=== PATIENT | female | born 1940 | race Caucasian/White ===

== ENCOUNTER 2021-07-20 15:50 | Outpatient (REF) | payer MEDICARE, MEDICAID, SELFPAY ==
--- NOTE | 2021-07-20 14:45 | SKI_PTH ---
PATIENT: Alexandria Huff LOC: [facility]#:[id number] AGE/SX: 81/F ROOM: RE07/20/[address]: Nataly Heart : 1940 BED: DIS: 07/20/2021 SPEC #: [id number] RECD: 07/23/21 12:48 STATUS: JEFF REQ #: [id number] YOLI: 07/20/21 14:[address]: Nataly Heart DEPT: Surgical Specimen RECD BY: Sharon Suarez ENTERED: 07/23/21 12:48 SP TYPE: TAVARES FUNES DR: Haven Mendoza Tissues: 1 - SKIN BIOPSY(SHAVE/PUNCH) Procedures: SKIN LEVEL 4 Comments: [id number]
== END 2021-07-20 15:51 | disposition home or self-care (01) ==
LOC: NCHCN 15:50
PROVIDERS: Visit Provider Family Medicine
DX: C44.619 Basal cell carcinoma of skin of left upper limb, including shoulder (principal)
CPT/HCPCS: 88305

== ENCOUNTER 2021-12-06 14:40 | Outpatient (REF) | payer MEDICARE, MEDICAID, SELFPAY ==
--- NOTE | 2021-12-06 13:50 | SKI_PTH ---
PATIENT: Alexandria Huff LOC: [facility]#:[id number] AGE/SX: 81/F ROOM: RE12/06/[address]: Nataly Heart : 1940 BED: DIS: 12/06/2021 SPEC #: [id number] RECD: 12/07/21 11:19 STATUS: JEFF YODER #: [id number] YOLI: 12/06/21 13:[address]: Nataly Heart DEPT: Surgical Specimen RECD BY: Sharon Suarez Tissues: 1 - SKIN BIOPSY(SHAVE/PUNCH) Procedures: SKIN LEVEL 4 Comments: [id number]
== END 2021-12-06 14:41 | disposition home or self-care (01) ==
LOC: NCHCN 14:40
PROVIDERS: PCP Family Medicine; Visit Provider Family Medicine
DX: L90.5 Scar conditions and fibrosis of skin (principal)
CPT/HCPCS: 88305

== ENCOUNTER 2023-12-11 11:51 | Outpatient (REF) | payer MEDICARE, MEDICAID, SELFPAY ==
[2023-12-11 14:29] LABS: HCT 42.9 % (36.0-46.0); HGB 14.6 g/dL (11.2-15.7); MCH 31.6 pg (27.0-33.0); MCV 93 fL (80-95); MPV 9.9 fL (8.0-11.0); Platelet Count 379 10^3/uL (130-400); RBC 4.62 10^6/uL (3.93-5.22); RDW 12.5 % (11.7-14.6); RDW-SD 42.9 fL; WBC 7.55 10^3/uL (4.4-10.8)
[2023-12-11 14:42] LABS: ALT 32 U/L (14-59); AST 21 U/L (15-37); Albumin 3.7 g/dL (3.4-5.0); Alkaline Phosphatase 73 U/L (46-116); Anion Gap 9.4 mmol/L (3-11); BUN 12 mg/dL (7-18); Bilirubin, Total 0.6 mg/dL (0.2-1.0); CO2 28.6 mmol/L (21.0-32.0); CREATININE 0.7 mg/dL (0.55-1.02); Calcium 9.2 mg/dL (8.5-10.1); Chloride 103 mmol/L (98-107); Glucose 112 mg/dL (74-106); Potassium 4.5 mmol/L (3.5-5.1); Sodium 141 mmol/L (136-145); Total Protein 7.2 g/dL (6.4-8.2)
== END 2023-12-11 11:52 | disposition home or self-care (01) ==
LOC: NCHCN 11:51
PROVIDERS: PCP Family Medicine; Referring Provider Family Medicine; Visit Provider Family Medicine
DX: R03.0 Elevated blood-pressure reading, without diagnosis of hypertension (principal)
CPT/HCPCS: 80053; 85027

== ENCOUNTER 2024-08-26 17:06 | Observation (INO) | payer MEDICARE, SELFPAY ==
[2024-08-26] VITALS (18 sets, daily range): BP systolic 118–208; BP diastolic 64–125; PULSE 71–96; RESP 9–20; TEMP 36–36.7; O2SAT 96–99; BMI 28.0
[2024-08-26] MEDS: Normal Saline Flush 10 ML SYR IV (15:56)
--- NOTE | 2024-08-26 15:57 | ANES.PREOP_ITS ---
General Info Date of Service Date Performed: 08/26/24 Height: 5 ft 4 in Weight: 74 kg Body Mass Index (BMI): 28.0 Surgical Procedure: Operation Date: 08/26/24 15:40 Proposed Procedure Side Surgeon p Dilation & Curettage, cervical bx, EUA Zonia Argeullo DO Actual Procedure Side Surgeon p Dilation & Curettage, cervical bx, EUA Not Applicable Zonia Arguello DO Meds Allergies and Home Medications Allergies Allergy/AdvReac Type Severity Reaction Status Date / Time No Known Allergies Allergy Verified 08/26/24 15:50 Home Medication ?Medication ?Instructions ?Recorded ascorbic acid (vitamin C) 500 mg 500 mg PO DAILY 02/17/19 tablet omega-3 fatty acids 1,000 mg 1,000 mg PO DAILY 02/17/19 capsule (Fish Oil Concentrate) vitamin B complex (B 1 tab PO DAILY 02/17/19 Complex-Vitamin B12 tablet) vitamin E (dl, acetate) 180 mg 400 unit PO DAILY 02/17/19 (400 unit) capsule cholecalciferol (vitamin D3) 25 1,000 unit PO DAILY 02/25/19 mcg (1,000 unit) capsule Current Visit Medications: Current Medications Generic Name Dose Route Start Last Admin Trade Name Freq PRN Reason Stop Dose Admin IV Miscellaneous Supplies 1 each 08/26/24 06:00 Iv Access IV 08/26/24 23:59 DIRECTED MARTA Sodium Chloride 0 ml 08/26/24 06:00 Normal Saline Flush 10 Ml Syr IV 08/26/24 23:59 PRN PRN Sodium Chloride 0 ml 08/26/24 06:00 Normal Saline 10 Ml Vial IJ 08/26/24 23:59 DIRECTED PRN Sterile Water 0 ml 08/26/24 06:00 Water,Injection,Sterile 10 Ml Vial IJ 08/26/24 23:59 DIRECTED PRN PFSH Active Problems Active Problems: Problem Status Onset Code Vaginal bleeding Acute N93.9 Pessary maintenance Acute Z46.89 Sensorineural hearing loss, bilateral Chronic 08/06/16 H90.3 Medical History Medical History Heart murmur, systolic Diverticulosis of colon Elevated blood pressure reading in office without diagnosis of hypertension Tubular adenoma of colon PMB (postmenopausal bleeding) Postmenopausal disorder Menopausal state Tobacco Smoking/Tobacco Use Status: Never Second hand exposure: No Alcohol Alcohol Intake: never Substance Use Substance use: Never Prental History History 2 3 Para 3 Hx # Term Pregnancies Multiple births Hx # Pregnancies Ectopic pregnancies AB induced Hx Number of Living Children AB spontaneous Vital Signs and Lab Results Vital Signs Most Recent Vital Signs in EMR: Most Recent Vital Signs Temp Pulse Resp BP Pulse Ox 36.5 C 95 H 19 208/97 H 97 08/26/24 15:34 08/26/24 15:34 08/26/24 15:34 08/26/24 15:34 08/26/24 15:34 Lab Results 08/26/24 15:48 Blood Type / Crossmatch: 2 Antibody Screen Pending 08/26/24 Complete Blood Count: 2 No Data to Display Complete Metabolic Panel: 2 No Data to Display Liver Function Panel: 2 No Data to Display Coagulation Panel: 2 No Data to Display Cardiac Panel: 2 No Data to Display Arterial Blood Gas: 2 No Data to Display Venous Blood Gas: 2 No Data to Display Pancreas Panel: 2 No Data to Display Thyroid Panel: 2 No Data to Display Infectious Disease: 2 No Data to Display Blood Cultures: 2 No Data to Display Toxicology Panel: 2 No Data to Display Anesthesia Assessment and Plan Anesthesia History Personal History: No History of General Anesthesia Family History: No Family History of Anesthesia Complications Exercise Tolerance Exercise Tolerance: Metabolic Equivalents>4 Pertinent Negatives Pertinent Negatives: No Symptoms of GERD (Rare reflux) Cardiac & Pulmonary Exam Cardiac Exam: Normal S1/S2 Heart Sounds (Unable to appreciate murmur) Pulmonary Exam: Clear Bilateral Breath Sounds Implantable Cardiac Device Does patient have a Pacemaker or an ICD?: No Airway Exam Known Difficult Airway: No Mallampati Class: 2 Mouth Opening: Normal (> 3cm) Thyromental Distance: Greater than 3 cm Neck Range of Motion: Full ROM Neck Circumference: Normal Teeth Condition: Removable Dentures/Plates Upper and Removable Dentures/Plates Lower ASA Classification ASA Score: ASA 2 Emergency Case?: Yes NPO Status NPO Status: Full Stomach (Chicken stew at 1230 today) Anesthesia Plan Resuscitation Status: Full Code Anesthesia Technique: General Anesthesia Airway Planned: Endotracheal Tube Monitors Used: Standard Monitors
[2024-08-26 16:00] LABS: Abs Immature Grans 0.03 10^3/uL (0.0-0.06); Absolute Basophil Count 0.05 10^3/uL (0.0-0.2); Absolute Eosinophil Count 0.05 10^3/uL (0.0-0.7); Absolute Lymphocyte Count 1.36 10^3/uL (1.2-3.4); Absolute Neutrophil Count 9.03 10^3/uL (1.2-6.7); Basophils % 0.4 %; Eosinophils % 0.4 %; HCT 41.7 % (36.0-46.0); Immature Grans % 0.3 %; MCH 31.4 pg (27.0-33.0); MCHC 33.6 % (32.0-36.0); MCV 94 fL (80-95); MPV 9.4 fL (8.0-11.0); Monocytes % 7.1 %; Neutrophils % 79.8 %; Platelet Count 372 10^3/uL (130-400); RBC 4.46 10^6/uL (3.93-5.22); RDW 12.7 % (11.7-14.6); RDW-SD 43.8 fL; WBC 11.32 10^3/uL (4.4-10.8)
[2024-08-26] MEDS: Lactated Ringers 500 ML 30 ML IV (16:20)
--- NOTE | 2024-08-26 16:40 | CER_PTH ---
PATIENT: Alexandria Huff LOC: U#:[id number] AGE/SX: 84/F ROOM: 208 RE08/26/[address]: Zonia Arguello DO : 1940 BED: A DIS: 08/27/2024 SPEC #: [id number] RECD: 08/27/24 12:45 STATUS: SOUElisabet REQ #: [id number] YOLI: 08/26/24 16:[address]: Zonia Arguello DEPT: Surgical Specimen RECD BY: Sharon Suarez ENTERED: 08/27/24 12:46 SP TYPE: CER OTHR DR: Nataly Heart Tissues: 1 - CERVICAL BIOPSY Procedures: GROSS AND MICRO LEVEL 4 IMMUNOPEROXIDASE STAIN Comments: [id number] (PLEASE INGRAM)
--- NOTE | 2024-08-26 17:16 | W.PM.OP ---
Date of service: 08/26/24 Time of Service: 17:16 Operative Note Operative Note DATE OF PROCEDURE: 08/26/24 PRE-OP DIAGNOSIS: Vaginal bleeding POST-OP DIAGNOSIS: same Cervical lesion PROCEDURE: Exam under anesthesia, cervical biopsy, cauterization of cervix and endocervix SURGEON: Zonia Arguello ASSISTING SURGEON: Kierra Smith ANESTHESIA TYPE: General LMA/ETT Refer to Anesthesia Record ESTIMATED BLOOD LOSS: 200 PATHOLOGY: other (Cervical tissue) COMPLICATIONS: None Patient was transported to: PACU Patient's condition: stable Indications: Profuse vaginal bleeding Findings: Normal-appearing perineum. Normal-appearing vaginal mucosa. Bulbous cervix with open cervical os. Tissue protruding through the cervical os, friable, fragile. Uterus, midline, mobile, no parametrial involvement. Uterus enlarged, approximately 6 to 8 weeks size. Procedure Description: After patient was seen in the office today for removal of pessary for further evaluation of new onset of vaginal bleeding, there was noted to be brisk vaginal bleeding which appeared to be cervical in nature. In light of relatively poor visualization, and ongoing bleeding despite attempts at cauterization of the cervical area, decision was made that she should go to the operating suite for exam under anesthesia and further evaluation. The risk, benefits, and alternatives were explained to the patient in full informed consent was obtained. She was taken the operating suite with an IV running where she was placed in the dorsal supine position. Endotracheal intubation performed for the administration of general anesthesia without difficulty. She was then placed in the modified dorsolithotomy position [facility] stirrups and prepped and draped in the usual sterile fashion. A straight catheter was used to drain approximately 50 cc of clear yellow urine. Exam under anesthesia revealed a uterus that was midline, mobile, and enlarged to approximately 8 weeks size. There was no parametrial tissue bulk. The cervix is somewhat enlarged at approximately 4 cm and cervical os open approximately 1 cm. There was protuberant tissue which was friable and fragile. Tissue specimen of the endocervix sent for pathologic examination. Speculum was inserted into the vaginal vault and the vaginal mucosa systematically inspected. There was no evidence of trauma or ulceration, or excoriation of the vaginal mucosa. Visually the cervix did appear smooth and regular, though somewhat patulous. There was also tissue protruding through the cervical opening that was friable and fragile. This area was initially cauterized with electrocautery, followed by chemical cautery with Monsel solution and pressure for greater than 10 minutes. She received 1 dose of intravenous TXA. At the completion of pressure and her Monsel solution, there was no further bleeding. Patient was returned to the dorsal supine position and awoke from anesthesia without difficulty. She was taken to the postanesthesia care unit in stable condition. Complications: None apparent Fluids: Crystalloid per anesthesia Pathology: Endocervical tissue for examination Findings: No evidence of vaginal excoriation, laceration, or ulceration. Visually smooth regular cervix with protuberant tissue from the cervical os, actively bleeding, cauterized and hemostatic. Bulky, approximately 8-week sized uterus midline, and mobile without evidence of parametrial extension or bulkiness. No appreciable adnexal mass. EBL: 200 cc
--- NOTE | 2024-08-26 17:33 | PGE_ITS ---
Date of Service Date of service: 08/26/24 Time of Service: 17:34 Assessment and Plan Assessment and plan (1) PMB (postmenopausal bleeding): Assessment and plan: Patient had profuse vaginal bleeding after removal of her pessary today. The etiology and source appears to be cervix with friable fragile cervical tissue sent for pathologic examination. Area cauterized both with electrocautery and chemically to achieve hemostasis. Await pathology. Contact made with [facility] oncology at [facility], Dr. Felix, who would except patient's care tonight if she has further ongoing vaginal bleeding or decompensation. Otherwise she will be seen by [facility] oncology in the near future, or as outpatient. (2) Cervical mass: Status: Acute Assessment and plan: Tissue sent to pathology. (3) Postoperative state: Status: Acute Assessment and plan: Status post exam under anesthesia, cervical biopsy, control of cervical bleeding. TXA dose x 1. Will receive Aygestin, 10 mg p.o. twice daily to help diminish vaginal bleeding. Await pathology. Subjective Subjective Interval history since last seen: Patient is in the postanesthesia care unit after her surgical procedure. As of note, [facility] oncology at [facility] contacted via One call. Spoke with Dr. Felix who agreed that if patient has deterioration or ongoing bleeding, they would except her care tonight. Otherwise they would be happy to follow-up with her as an outpatient, or transfer tomorrow. Also spoke with Dr. Ezio Childress, hospitalist to make them aware that the patient will be admitted to the general medical floor. Objective Last Vital Signs Temp 97.7 F 08/26/24 17:25 Pulse 79 08/26/24 17:25 Resp 12 08/26/24 17:30 BP 125/64 08/26/24 17:25 Pulse Ox 98 08/26/24 17:30 Laboratory Results - last 24 hr 08/26/24 15:48 WBC 11.32 H RBC 4.46 Hgb 14.0 Hct 41.7 MCV 94 MCH 31.4 MCHC 33.6 RDW 12.7 Plt Count 372 MPV 9.4 Immature Gran % 0.3 Neutrophils % 79.8 Lymphocytes % 12.0 Monocytes % 7.1 Eosinophils % 0.4 Basophils % 0.4 Nucleated RBC % 0.0 Absolute Neutrophils 9.03 H Absolute Lymphocytes 1.36 Absolute Monocytes 0.80 Absolute Eosinophils 0.05 Absolute Basophils 0.05 ABO/Rh A Positive Antibody Screen NEGATIVE Time Spent with Patient Time Spent with Patient: 35-49 minutes Time was spent: preparing to see the patient(eg.review tests), obtaining and/or reviewing separately otained hiistory, ordering medications,tests, procedures, referring, communicating with other health urgent care nurse practitioner, indepentently interpreting results and care coordination
--- NOTE | 2024-08-26 17:40 | W.ANESPOSTOP ---
Postoperative Evaluation Date, Time and Location Date Performed: 08/26/24 Time Performed: 17:40 Patient Location: PACU Vital Signs Most Recent Imported Vital Signs: Most Recent Vital Signs Temp Pulse Resp BP Pulse Ox 36.5 C 79 12 125/64 98 08/26/24 17:25 08/26/24 17:25 08/26/24 17:30 08/26/24 17:25 08/26/24 17:30 Pain Score Most Recent Pain Score: Most Recent Pain Score Pain Level 0 08/26/24 17:27 Assessment Mental Status: Awake (Alert & Oriented to Patient Baseline) Airway and Respiratory Function: Patent airway with normal (patient baseline) respiratory exam Cardiovascular Function: Hemodynamically Stable Hydration Status: Adequately Hydrated Nausea & Vomiting: No Nausea or Vomiting Pain: Pt. Denies Any Pain Peripheral Nerve Block: Patient did not receive a nerve block
--- NOTE | 2024-08-26 17:57 | W.PC.ACHO ---
Registration Status: Primary Language: Preferred Language: Medical / Surgical History (Last Reviewed 08/26/24 @ 15:46 by Darcie Wisdom RN) Heart murmur, systolic Diverticulosis of colon Elevated blood pressure reading in office without diagnosis of hypertension Tubular adenoma of colon PMB (postmenopausal bleeding) Postmenopausal disorder Menopausal state Most Recent Vital Signs Temperature 36.4 C L 08/26/24 17:41 Pulse 80 08/26/24 17:41 Pulse Rhythm Irregular 08/26/24 15:34 Pulse 88 08/26/24 17:41 Respiratory Rate 18 08/26/24 17:41 Respiratory Depth Normal 08/26/24 15:34 Blood Pressure 163/125 H 08/26/24 17:41 Blood Pressure Mean 136 08/26/24 17:41 Pulse Oximetry 96 08/26/24 17:40 Respiratory End-tidal CO2 18 08/26/24 17:41 Oxygen Delivery Method Nasal Cannula 08/26/24 17:27 Oxygen Flow Rate 0 08/26/24 17:27 Pain Level 0 08/26/24 17:32 Allergies No Known Allergies Allergy (Verified 08/26/24 15:50) Active Medications Generic Name Dose Route Start Last Admin Trade Name Freq PRN Reason Stop Dose Admin Ringer's Solution 500 mls @ 30 mls/hr 08/26/24 17:09 08/26/24 17:26 IV 09/25/24 17:08 30 mls/hr INFUSION MARTA Infusion Sodium Chloride 0 ml 08/26/24 06:00 08/26/24 15:56 Normal Saline Flush 10 Ml Syr IV 08/26/24 23:59 10 ml PRN PRN Administration IV IV Catheter Type [Left Wrist] Peripheral IV IV Catheter Gauge [Left Wrist] 20 Diet Orders Category Date Time Status Regular/Normal [DIET] Nutrition 08/26/24 Dinner Active Diagnostics 08/26/24 Range/Units 15:48 WBC 11.32 H (4.4-10.8) 10^3/uL RBC 4.46 (3.93-5.22) 10^6/uL Hgb 14.0 (11.2-15.7) g/dL Hct 41.7 (36.0-46.0) % MCV 94 (80-95) fL MCH 31.4 (27.0-33.0) pg MCHC 33.6 (32.0-36.0) % RDW 12.7 (11.7-14.6) % Plt Count 372 (130-400) 10^3/uL MPV 9.4 (8.0-11.0) fL Immature Gran % 0.3 % Neutrophils % 79.8 % Lymphocytes % 12.0 % Monocytes % 7.1 % Eosinophils % 0.4 % Basophils % 0.4 % Nucleated RBC % 0.0 (0.0-0.3) % Absolute Neutrophils 9.03 H (1.2-6.7) 10^3/uL Absolute Lymphocytes 1.36 (1.2-3.4) 10^3/uL Absolute Monocytes 0.80 (0.1-0.8) 10^3/uL Absolute Eosinophils 0.05 (0.0-0.7) 10^3/uL Absolute Basophils 0.05 (0.0-0.2) 10^3/uL ABO/Rh A Positive Antibody Screen NEGATIVE Intake and Output - 24 Hour Total 08/26/24 15:26 thru 08/26/24 17:32 Intake Total 100 Output Total 250 Balance -150 Weight 74 kg Intake: IV 100 Output: Urine 50 Estimated Blood Loss 200 Other: Urine Color Yellow Urine Appearance Clear Emesis Description None Urinary Catheter Urinary Catheter Date of 08/26/24 Insertion [Straight] Time of insertion [Straight] 16:45 Problems (Last Reviewed 08/26/24 @ 15:46 by Darcie Wisdom RN) Postoperative state (Acute) Cervical mass (Acute) v v v v v v v v v Sending and/or Receiving Nurses: Please use comment section below to note any information pertinent to the patient hand-off not included above. Information / Comments: Pt admited for overnight d/t being sedated under general for vaginal exam for location of bleeding. Report received from: Ange Glaser RN
--- NOTE | 2024-08-26 18:13 | NUR.NOTE ---
Nursing Note: PT arrived on med/surg unit @ 1750, access center had trouble putting chart in system, nursing was unable to access chart till 1810.
[2024-08-26] MEDS: Acetaminophen 500 MG TAB PO (18:57)
[2024-08-26] MEDS: Norethindrone 5 MG TAB 10 MG PO (20:35)
[2024-08-26] MEDS: Famotidine 20 MG/2 ML VIAL IVP (21:33)
[2024-08-27 03:05] VITALS: BP 116/78; PULSE 80; RESP 18; TEMP 36.4; O2SAT 94
[2024-08-27 06:41] LABS: HCT 36.9 % (36.0-46.0); HGB 12.4 g/dL (11.2-15.7); MCH 31.1 pg (27.0-33.0); MCHC 33.6 % (32.0-36.0); MCV 93 fL (80-95); MPV 9.9 fL (8.0-11.0); Platelet Count 372 10^3/uL (130-400); RBC 3.99 10^6/uL (3.93-5.22); RDW 12.8 % (11.7-14.6); RDW-SD 43.8 fL; WBC 11.38 10^3/uL (4.4-10.8)
[2024-08-27 07:30] LABS: ALT 28 U/L (14-59); AST 15 U/L (15-37); Albumin 2.9 g/dL (3.4-5.0); Alkaline Phosphatase 77 U/L (46-116); BUN 15 mg/dL (7-18); CREATININE 0.6 mg/dL (0.55-1.02); Calcium 8.9 mg/dL (8.5-10.1); Chloride 107 mmol/L (98-107); Estimated GFR 87.36 (mL/min/1.73m2); Glucose 110 mg/dL (74-106); Potassium 4.3 mmol/L (3.5-5.1); Sodium 142 mmol/L (136-145); Total Protein 6.4 g/dL (6.4-8.2)
[2024-08-27 07:51] VITALS: BP 143/74; PULSE 68; RESP 18; TEMP 36.4; O2SAT 95
--- NOTE | 2024-08-27 08:00 | DI.CT_ITS ---
Exam(s) CT ABDOMEN PELVIS W EXAM: CT ABDOMEN PELVIS W CLINICAL HISTORY: Postmenopausal vaginal bleeding, cervical lesion. TECHNIQUE: Imaging Protocol: Axial computed tomography images with coronal and sagittal reformatted images were created and reviewed CONTRAST MATERIAL: Intravenous: Omnipaque 350 Contrast volume:85 ml Oral: yes / COMPARISON: No exams were available for comparison FINDINGS: ABDOMEN and PELVIS: Exam is mildly limited by motion. Lung Bases: No acute findings. Liver: Normal density. No suspicious mass. Gallbladder and biliary tract: Cholelithiasis. No biliary dilation. Pancreas: Normal density. No abnormal calcifications or inflammatory process. No evidence of mass. Spleen: Normal. Kidneys: Normal size, contour and axis. No radiodense stones. No obstructive uropathy. No suspicious masses seen. Adrenal glands: No masses seen. Vasculature: Abdominal aorta non-dilated. Soft tissues: Unremarkable. Bladder: No gross wall thickening. No calculi.No focal mass. Bowel: No obstruction. No bowel wall thickening. Appendix normal. Diverticulosis. No evidence of diverticulitis. Peritoneal cavity: No ascites. No focal collection. No mesenteric inflammatory response. Bones: Scoliosis and degenerative changes. No breast of lesions. Reproductive organs: Small bilateral ovarian cysts which appear simple. Ill-defined areas of low att enuation in the body and fundus of the uterus measuring roughly 4 cm. Additional abnormal 3.[address] low density lesion involving the cervix. Apparent debris and air in vaginal cuff. Lymph nodes: 1.6 centimeter right pelvic sidewall lymph node and adjacent smaller node. No left-sided lymph nodes or para-aortic lymph nodes. IMPRESSION:: Ill-defined masses are noted in uterus and cervix, suspicious for malignancy. 1.6 centimeter right pelvic sidewall lymph node. RADIATION DOSE DELIVERED: 493.54mGy.cm Total DLP DATA REPOSITORY: All CT scans at this facility are submitted to the National Radiology Data Registry (NRDR) Dose Index Registry (DIR) with the [employer] (ACR). RADIATION OPTIMIZATION: All CT scans at this facility use at least one of these dose optimization te chniques: automated exposure control; mA and/or kV adjustment per patient size (includes targeted exa ms where dose is matched to clinical indication); or iterative reconstruction.
--- NOTE | 2024-08-27 08:13 | PGE_ITS ---
Date of Service Date of service: 08/27/24 Time of Service: 08:13 Assessment and Plan Assessment and plan (1) Vaginal bleeding: Status: Acute Assessment and plan: Postop day 1 status post exam under anesthesia and cautery of cervical muse. Pathology is pending. CT scan this morning. Stable vital signs and hemoglobin. Anticipate discharge home on Aygestin, 10 mg twice daily with subsequent follow-up based on pathology. All questions answered this morning. Conversation with her daughter last night, and update this morning. (2) Cervical mass: Status: Acute Assessment and plan: Pathology is pending. CT scan this morning Subjective Subjective Interval history since last seen: Patient seen and examined this morning. Overall doing well. Minimal bleeding through the night. Some brownish discharge which would be appropriate considering her chemical cautery of the cervix. Laboratory studies are appropriate. Vital signs are stable. Appetite is okay. No fevers or chills. Minimal pain. We did conversation today regarding her management. We are awaiting her pathology which will be expedited today and sent to [facility] for read. CT scan this morning. Laboratory studies are normal. Hemoglobin stable at 12. Exam Const General: cooperative, healthy appearing, comfortable, no acute distress and well developed Nutritional Appearance: average body habitus Eyes General: appearance normal, both eyes and all related structures Resp Effort & Inspection: normal respiratory effort, no audible wheezes and no cough Cardio Rate: regular rate Rhythm: regular rhythm GI Inspection: normal to inspection Palpation: soft Extrem General: normal to inspection and no clubbing, cyanosis or edema Objective Last Vital Signs Temp 97.5 F L 08/27/24 07:51 Pulse 68 08/27/24 07:51 Resp 18 08/27/24 07:51 BP 143/74 H 08/27/24 07:51 Pulse Ox 95 08/27/24 07:51 Laboratory Results - last 24 hr 08/26/24 08/27/24 15:48 05:43 WBC 11.32 H 11.38 H RBC 4.46 3.99 Hgb 14.0 12.4 Hct 41.7 36.9 MCV 94 93 MCH 31.4 31.1 MCHC 33.6 33.6 RDW 12.7 12.8 Plt Count 372 372 MPV 9.4 9.9 Immature Gran % 0.3 Neutrophils % 79.8 Lymphocytes % 12.0 Monocytes % 7.1 Eosinophils % 0.4 Basophils % 0.4 Nucleated RBC % 0.0 Absolute Neutrophils 9.03 H Absolute Lymphocytes 1.36 Absolute Monocytes 0.80 Absolute Eosinophils 0.05 Absolute Basophils 0.05 Sodium 142 Potassium 4.3 Chloride 107 Carbon Dioxide 28.0 Anion Gap 7.0 BUN 15 Creatinine 0.6 Est GFR (CKD-EPI 2020) 87.36 Glucose 110 H Calcium 8.9 Total Bilirubin 0.40 AST 15 ALT 28 Alkaline Phosphatase 77 Total Protein 6.4 Albumin 2.9 L ABO/Rh A Positive Antibody Screen NEGATIVE Time Spent with Patient Time Spent with Patient: 35-49 minutes Time was spent: preparing to see the patient(eg.review tests), obtaining and/or reviewing separately otained hiistory, ordering medications,tests, procedures, referring, communicating with other health manager intensive care unit, indepentently interpreting results, counseling the patient and care coordination
[2024-08-27] MEDS: Omnipaque 350 MG/ML 50 ML BTL IJ (08:17)
[2024-08-27] MEDS: Breeza Beverage 473 ML BTL PO ×2 (08:18→08:19)
--- NOTE | 2024-08-27 09:10 | PDOC.CMIN ---
Date of service: 08/27/24 Time of Service: 09:10 Care Management Initial Assmt Initial Assessment Reason for Hospitalization: Vaginal Bleeding Functional Status/Living Situation Patient Presentation: Alexandria is awake and lying in bed with her daughter Candy is at her bedside. They are currently waiting for the results of the CT and further recommendations. CM will continue to follow. Town of Residence: [place] Resides with: Alone Significant Other/Family: Local Natural Supports: Daughter Candy Wang lives in [place] lives in [place] Employment Status: Retired Instrumental Activities of Daily Living (ADLs): Independent Medications Medication Management: No Issues/Barriers identified Physical Functioning/Mobility Assistive Device: None Advance Directives Advance Directives: Do you have an Advance Directive: Y 11/13/21 09:29 AD On File at [facility]: Y 02/15/13 08:38 Date Asked 08/26/24 08/26/24 18:07 AD Date Reviewed 08/26/24 08/26/24 18:07 COLST On File at [facility] COLST Date Scanned Code Status Resuscitation Status Full Code Portal Pt does not currently have a portal and education provided: Yes Insurance Coverage/Financial Issues Insurance: Medicare Medicaid Care Team Visit Care Team Role Provider Type Nataly Heart Primary Care Provider NON-[facility] STAFF PHYSICIAN Zonia Arguello DO Admit Provider OSTEOPATHIC DOCTOR Attending Provider Discharge Potential Discharge Needs: PCP F/U Appt and Other (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 Follow up with community providers and her discharge plan of care as recommended. No new [facility] services are anticipated at this time. PFSH All Active Problems (Updated 08/26/24 @ 17:36 by Zonia Arguello DO) Postoperative state (Acute) Cervical mass (Acute) Vaginal bleeding (Acute) Pessary maintenance (Acute) Donut pessary with good effect Sensorineural hearing loss, bilateral (Chronic 08/06/16) Medical History Heart murmur, systolic Diverticulosis of colon Elevated blood pressure reading in office without diagnosis of hypertension Tubular adenoma of colon PMB (postmenopausal bleeding) Postmenopausal disorder Menopausal state Social History Smoking/Tobacco Use Status: Never Second Hand Exposure: No Smoking risk assessment performed?: Yes Alcohol Intake: never Drug use: Never Adopted: No Caregiver/Support person: No Foster care: No Household members: none Housing: apartment Number of Children: 3 number of grandchildren: 4 Communication Needs: Hard of Hearing Education Level: high school Do you need help understanding health information?: Never What is your relationship status?: How often do you talk on the phone with friends or family?: three or more times per week How often do you get together with friends or relatives?: three or more times per week Panel score (0-1 are the most socially isolated patients): 1 What type of physical activity do you participate in: walking and independent ambulation Duration: 15-30 minutes/day Seatbelt use: always Water heater temp set <120 deg: No Working smoke detector in home: Yes Fire extinguisher in home: Yes Carbon monox detector in home: Yes Firearms in home: No Do you feel safe at home: Yes Female Reproductive History Menstrual Menopause type: natural History History 3 Para 3 Hx # Term Pregnancies Multiple births Hx # Pregnancies Ectopic pregnancies AB induced Hx Number of Living Children AB spontaneous SDOH(Care Management) Screening Will the Patient Participate in the Screening?: Yes Do you worry about having a steady place to live?: no Problems where you live: no known problems In the past 12 months, have you had to go without electric, gas, oil or water in your home?: no Have you or anyone in your house had to go without enough food to eat?: no Has lack of transportation kept you from medical appointments or from doing things needed for daily living?: no Has anyone in your support network made you feel unsafe for any reason?: no
[2024-08-27] MEDS: Famotidine 20 MG/2 ML VIAL IVP (09:44)
[2024-08-27] MEDS: Normal Saline - Diluent 50 ML VIAL IJ (10:01)
[2024-08-27] MEDS: Omnipaque 350 MG/ML 500 ML BTL-Imaging package IJ (10:02)
[2024-08-27 11:03] VITALS: BP 138/107; PULSE 72; RESP 18; TEMP 36.6; O2SAT 94
[2024-08-27 11:10] VITALS: BP 150/73
[2024-08-27] MEDS: Norethindrone 5 MG TAB 10 MG PO (11:41)
--- NOTE | 2024-08-27 11:47 | CHAPLAIN ---
Alexandria was in bed, visiting with the daughter, Candy, when I stopped in. Candy told me that Alexandria has difficulty hearing and she reads lips. I explained my role and offered support.
--- NOTE | 2024-08-27 11:53 | PDOC.CMDIS ---
Date of service: 08/27/24 Time of Service: 11:53 LACE Index Scoring Tool Questions: Length of Stay (in days): 1 Was the patient admitted via the E.D.?: No E.D. Visits: 0 Answers: Total Score: 1 Risk of Readmission: Low Risk Care Management Discharge Plan Reason for Hospitalization: Cervical Mass, vaginal bleeding Discharge Plan: Discharge home via private vehicle with daughter. Follow up with community providers and discharge plan of care as instructed. No new services are ordered at the time of discharge. Patient/Family Education Needs: Review discharge instructions, limitations, medications and plan to follow up with community providers. Discuss ask me three. [facility] Health Related Social Needs: No Data to Display
--- NOTE | 2024-08-27 12:10 | W.PM.PROGNOT ---
Date of Service Date of service: 08/27/24 Time of Service: 12:11 Assessment and Plan Assessment and plan (1) Cervical mass: Status: Acute Assessment and plan: Cervical and endometrial mass present on CT scan. 1 area of lymphadenopathy at 1.6 cm. Findings discussed with patient and her daughter. Pathology is pending from her procedure rate last night. Bleeding is stable. Vital signs are stable patient is appropriate for discharge home with close follow-up. Referral to [facility] in an urgent fashion will be placed. (2) Vaginal bleeding: Status: Acute Subjective Subjective Interval history since last seen: Patient seen this afternoon. Minimal vaginal bleeding. Appropriate brownish vaginal discharge patient is present with her daughter. We discussed waiting her pathology report, and the CT scan findings which are consistent with a 4 cm endometrial mass and a mass in the endocervix. At this point, she appears stable for discharge home. She will continue on her Aygestin or norethindrone acetate, 10 mg twice daily. We are awaiting her pathology and will facilitate an urgent consultation with OR MANAGER oncology at [facility] for further care and recommendation. All questions were answered. Objective Last Vital Signs Temp 97.9 F 08/27/24 11:03 Pulse 72 08/27/24 11:03 Resp 18 08/27/24 11:03 BP 150/73 H 08/27/24 11:10 Pulse Ox 94 08/27/24 11:03 Laboratory Results - last 24 hr 08/26/24 08/27/24 15:48 05:43 WBC 11.32 H 11.38 H RBC 4.46 3.99 Hgb 14.0 12.4 Hct 41.7 36.9 MCV 94 93 MCH 31.4 31.1 MCHC 33.6 33.6 RDW 12.7 12.8 Plt Count 372 372 MPV 9.4 9.9 Immature Gran % 0.3 Neutrophils % 79.8 Lymphocytes % 12.0 Monocytes % 7.1 Eosinophils % 0.4 Basophils % 0.4 Nucleated RBC % 0.0 Absolute Neutrophils 9.03 H Absolute Lymphocytes 1.36 Absolute Monocytes 0.80 Absolute Eosinophils 0.05 Absolute Basophils 0.05 Sodium 142 Potassium 4.3 Chloride 107 Carbon Dioxide 28.0 Anion Gap 7.0 BUN 15 Creatinine 0.6 Est GFR (CKD-EPI 2020) 87.36 Glucose 110 H Calcium 8.9 Total Bilirubin 0.40 AST 15 ALT 28 Alkaline Phosphatase 77 Total Protein 6.4 Albumin 2.9 L ABO/Rh A Positive Antibody Screen NEGATIVE Time Spent with Patient Time Spent with Patient: 25-34 minutes Time was spent: preparing to see the patient(eg.review tests), obtaining and/or reviewing separately otained hiistory, ordering medications,tests, procedures, referring, communicating with other health critical care nurse practitioner, indepentently interpreting results, counseling the patient and care coordination
--- NOTE | 2024-08-27 12:58 | DSE_ITS ---
Date of service: 08/27/24 Time of Service: 12:58 DS: Diagnosis Discharge Diagnosis (1) Cervical mass: Status: Acute Asessment and Plan: Biopsy performed. Pathology is pending. Patient will have referral to follow- up with [facility] PLANT AND MAINTENANCE TECHNICIAN oncology. (2) Vaginal bleeding: Status: Acute Asessment and Plan: Continue Aygestin, 10 mg twice daily. Monitor for further bleeding Discharge Plan Disposition Patient Disposition: Home Condition: Improving Discharge Details Reason For Visit: Vaginal Bleeding Admit Date/Time: 08/26/24 17:06 Admit Provider: Zonia Arguello Attending Provider: Zonia Arguello Primary Care Provider: Nataly [facility] Hospital Course Hospital Course: Patient presented to the office yesterday with approximately 2 to 3 days of increased vaginal bleeding and concerned about her pessary. Pessary was removed and patient was noted to have profuse cervical bleeding with out great visualization. She was taken the operating suite for exam under anesthesia where it was revealed that she had a cervical mass protruding through the cervical os. Tissue was sent for pathology. This area was cauterized both chemically and with electrocautery. She received 1 dose of TXA, along with ongoing progestational agents. She had an uncomplicated postoperative course. Stable hemoglobin at 12.4 down from 14. Platelet count is normal. CMP is normal. CT scan with contrast of the abdomen and pelvis performed 08/27/2024. Contact made with PLANT AND MAINTENANCE TECHNICIAN oncology for further follow-up. Pathology is pending Home Meds and New Rx's Prescriptions: New norethindrone acetate 5 mg tablet 10 mg PO .Twice daily Qty: 120 1RF No Action cholecalciferol (vitamin D3) 1,000 unit capsule 1,000 unit PO DAILY omega-3 fatty acids [Fish Oil Concentrate] 1,000 mg capsule 1,000 mg PO DAILY ascorbic acid (vitamin C) 500 mg tablet 500 mg PO DAILY vitamin B complex [B Complex-Vitamin B12] tablet 1 tab PO DAILY vitamin E (dl, acetate) 400 unit capsule 400 unit PO DAILY Discharge Instructions Additional Instructions: Referral placed to PLANT AND MAINTENANCE TECHNICIAN oncology at [facility]. Referral faxed to [phone] Activity:: Pelvic rest Equipment/Supplies:: No Equipment Needed Diet:: As Tolerated Discharge Orders Discharge Orders: Discharge Order (Routine); Ordered 08/27/24 Ordered By: Zonia Arguello DS: Summary Time Spent with Patient providing and/or coordinating discharge services: Greater than 30 minutes Status at Discharge Functional status at discharge: independent ambulation Overall status at discharge: patient is progressing back to baseline Mental Status: mental status grossly normal Speech and Movement: speech and movement normal Mood: congruent mood Affect: normal affect Quality:SDOH Health Related Social Needs: No Data to Display Exam Narrative Exam Narrative: See physical exam from progress note dated 08/27/2024. Psych Mental Status: mental status grossly normal Speech and Movement: speech and movement normal Mood: congruent mood Affect: normal affect DS: Data Vitals/I&O Vitals and I&O: Vital Signs Temperature 97.9 F 08/27/24 11:03 Temperature Source Temporal Artery Scan 08/27/24 11:03 Pulse 72 08/27/24 11:03 Pulse Rhythm Regular 08/26/24 18:04 Pulse 88 08/26/24 17:41 Respiratory Rate 18 08/27/24 11:03 Respiratory Effort Normal, Non-Labored 08/26/24 18:04 Respiratory Depth Normal 08/26/24 18:04 Respiratory Pattern Normal 08/26/24 18:04 Blood Pressure 150/73 H 08/27/24 11:10 Blood Pressure Mean 136 08/26/24 17:41 Pulse Oximetry 94 08/27/24 11:03 Respiratory End-tidal CO2 18 08/26/24 17:45 Oxygen Delivery Method Room Air 08/27/24 07:51 Oxygen Flow Rate 0 08/27/24 07:51 Pain Level 0 08/27/24 03:05 Intake & Output 08/26/24 08/27/24 08/27/24 23:59 11:59 23:59 Intake Total 400 / 400 500 / 500 Output Total 750 / 750 700 / 700 Balance -350 / -350 -200 / -200 Weight 163 lb 2.273 oz Intake: IV 100 / 100 500 / 500 Oral 300 / 300 Output: Urine 550 / 550 700 / 700 Estimated Blood Loss 200 / 200 Other: Urine Color Brinckerhoff Urine Appearance Cloudy Clots Comment voided in toilet Emesis Description None Data Completed and Pending Labs on day of discharge: Labs from last 24 hours 08/27/24 08/26/24 05:43 15:48 WBC 11.38 H 11.32 H RBC 3.99 4.46 Hgb 12.4 14.0 Hct 36.9 41.7 MCV 93 94 MCH 31.1 31.4 MCHC 33.6 33.6 RDW 12.8 12.7 Plt Count 372 372 MPV 9.9 9.4 Immature Gran % 0.3 Neutrophils % 79.8 Lymphocytes % 12.0 Monocytes % 7.1 Eosinophils % 0.4 Basophils % 0.4 Nucleated RBC % 0.0 Absolute Neutrophils 9.03 H Absolute Lymphocytes 1.36 Absolute Monocytes 0.80 Absolute Eosinophils 0.05 Absolute Basophils 0.05 Sodium 142 Potassium 4.3 Chloride 107 Carbon Dioxide 28.0 Anion Gap 7.0 BUN 15 Creatinine 0.6 Est GFR (CKD-EPI 2020) 87.36 Glucose 110 H Calcium 8.9 Total Bilirubin 0.40 AST 15 ALT 28 Alkaline Phosphatase 77 Total Protein 6.4 Albumin 2.9 L ABO/Rh A Positive Antibody Screen NEGATIVE PFSH All Active Problems (Updated 08/27/24 @ 12:14 by Zonia Arguello DO) Uterine mass (Acute) Postoperative state (Acute) Cervical mass (Acute) Vaginal bleeding (Acute) Pessary maintenance (Acute) Donut pessary with good effect Sensorineural hearing loss, bilateral (Chronic 08/06/16) Medical History Heart murmur, systolic Diverticulosis of colon Elevated blood pressure reading in office without diagnosis of hypertension Tubular adenoma of colon PMB (postmenopausal bleeding) Postmenopausal disorder Menopausal state Social History Smoking/Tobacco Use Status: Never Second Hand Exposure: No Smoking risk assessment performed?: Yes Alcohol Intake: never Drug use: Never Adopted: No Caregiver/Support person: No Foster care: No Household members: none Housing: apartment Number of Children: 3 number of grandchildren: 4 Communication Needs: Hard of Hearing Education Level: high school Do you need help understanding health information?: Never What is your relationship status?: How often do you talk on the phone with friends or family?: three or more times per week How often do you get together with friends or relatives?: three or more times per week Panel score (0-1 are the most socially isolated patients): 1 What type of physical activity do you participate in: walking and independent ambulation Duration: 15-30 minutes/day Seatbelt use: always Water heater temp set <120 deg: No Working smoke detector in home: Yes Fire extinguisher in home: Yes Carbon monox detector in home: Yes Firearms in home: No Do you feel safe at home: Yes Female Reproductive History Menstrual Menopause type: natural History History 3 Para 3 Hx # Term Pregnancies Multiple births Hx # Pregnancies Ectopic pregnancies AB induced Hx Number of Living Children AB spontaneous Time Spent with Patient Time Spent with Patient: 45-69 minutes Time was spent: preparing to see the patient(eg.review tests)
== END 2024-08-27 13:34 | disposition home or self-care (01) ==
LOC: SUR 18:08 → MS 18:11
PROVIDERS: Admitting Provider Obstetrics & Gynecology; PCP Family Medicine; Visit Provider Obstetrics & Gynecology
PROC: (CPT 57510; principal; 2024-08-26 15:30)
DX: N95.0 Postmenopausal bleeding (principal); N88.8 Other specified noninflammatory disorders of cervix uteri; H90.3 Sensorineural hearing loss, bilateral; R01.1 Cardiac murmur, unspecified; C54.1 Malignant neoplasm of endometrium
CPT/HCPCS: 57510; 36415; 80053; 85027; 86850; 86900; 86901; 88305; 74177; 85025; 88361; G0378; J0131; J0330; J1100; J2003; J2405; J2704; Q9967